=== PATIENT | female | born 1960 | race Caucasian/White ===

== ENCOUNTER 2025-02-06 09:34 | Day surgery (SDC) | payer MEDICARE, BC ==
[~2025-02-06] VITALS: Ht 162.6 cm; Wt 77.4 kg
[2025-02-06] VITALS (12 sets, daily range): BP systolic 133–205; BP diastolic 84–121; PULSE 76–99; RESP 12–16; TEMP 98.2; O2SAT 95–100
[2025-02-06] MEDS ORDERED: ESTROGEN COMPOUND (10:08)
[2025-02-06] MEDS ORDERED: KEN0.1O TOP (10:08)
[2025-02-06] MEDS ORDERED: AMLO5TAB16 PO (10:08)
[2025-02-06] MEDS ORDERED: LOSA25TA41 PO (10:08)
[2025-02-06] MEDS: fentaNYL/PF 50MCG/1 ML 2ML syringe IV ONE (13:00)
[2025-02-06] MEDS: normal saline 1000ml 1,000 ML IV SCH (13:00)
[2025-02-06] MEDS: MIDAZolam 1mg/ml 10ml vial IV ONE (13:00)
--- NOTE | 2025-02-17 20:24 | CARDIOLOGY REPORT ---
DATE OF SERVICE: 02/06/2025 DICTATING PHYSICIAN: Kiki Caceres MD TRANSESOPHAGEAL ECHOCARDIOGRAM DATE OF STUDY: 02/06/2025 DESCRIPTION OF PROCEDURE: After informed consent was obtained, the patient was brought to Cardiac Short Stay, where she was prepped in the usual manner. The transesophageal echocardiographic probe was passed into the esophagus without difficulty. Required images were obtained. The patient remained clinically and hemodynamically stable throughout the procedure. CONCLUSION: Successful transesophageal echocardiogram. Interpretation will be dictated separately. Kiki Caceres MD TID: [id number] RECEIPT: [id number] VIVIAN/BETHANIE
[2025-03-15] MEDS ORDERED: estrogen (14:31)
== END 2025-02-06 13:30 | disposition home or self-care (01) ==
LOC: SSTAY O 09:34
PROVIDERS: ATTEND Student in an Organized Health Care Education/Training Program
DX: D15.1 Benign neoplasm of heart (principal); I10 Essential (primary) hypertension
CPT/HCPCS: 93312; 93325; 94760; J2250; J3010; J7030

== ENCOUNTER 2025-03-16 09:01 | Day surgery (SDC) | payer MEDICARE, BC ==
[2025-03-16] VITALS (9 sets, daily range): BP systolic 127–160; BP diastolic 75–107; PULSE 64–87; RESP 14–21; TEMP 97.8; O2SAT 94–99
[~2025-03-16] VITALS: Ht 162.6 cm; Wt 77.2 kg
[~2025-03-16 09:01] MED LIST: AMLO5TAB16 PO; KEN0.1O TOP; LOSA25TA41 PO; estrogen
--- NOTE | 2025-03-16 09:38 | ELECTROCARDIOGRAPH REPORT ---
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 TYRESE Gonzalez Measurements Intervals [place] Rate: 78 P: 61 PA: 156 QRS: 70 QRSD: 102 T: -20 QT: 440 QTc: 502 Interpretive Statements Sinus rhythm Inferior infarct, age indeterminate Prolonged QT interval Electronically Signed On 03-17-2025 12:35:[address] TYRESE Gonzalez Please click the below link to view image of tracing.
[2025-03-16 10:40] LABS: MEAN PLATELET VOLUME 7.8 FL (7.4-10.4); RED CELL DISTRIBUTION WIDTH 13.2 % (11.5-14.5)
[2025-03-16 10:51] LABS: APTT 26 SECONDS (22-32); INR 1.0 INR
[2025-03-16 10:53] LABS: CREATININE 0.65 MG/DL (0.40-0.90); TOTAL CARBON DIOXIDE 25.4 MMOL/L (24-32); eCRCL 74 ML/MIN; eGFR > 90 ML/MIN
[2025-03-16] MEDS ORDERED: verapamil 2.5 mg/ml inj IV ONE (12:41)
[2025-03-16] MEDS ORDERED: LIDOcaine 1% (10mg/ml) 2ml vial ONE (12:41)
[2025-03-16] MEDS ORDERED: nitroGLYCERIN 500mcg/5mL D5W 5 ML IV ONE (12:42)
[2025-03-16] MEDS ORDERED: heparin 1,000unit/ml 10ml vial 10 ML ONE (12:42)
[2025-03-16] MEDS ORDERED: midazolam 1 mg/ML 2ml injection ONE (12:57)
[2025-03-16] MEDS ORDERED: fentaNYL/PF 50MCG/1 ML 2ML syringe ONE (12:57)
--- NOTE | 2025-03-16 13:25 | CARDIAC CATH REPORT ---
Cardiac Cath Report Providers to CC CC: KAI MEDLEY MD Procedure Comments: 1. Left Heart Catheterization 2. Selective Coronary Angiography 3. Right Radial Artery Access Brief History/Indications: 64yo woman with HTN, Atrial Myxoma referred for evaluation prior to LA myxoma resection. Techniques: After informed consent was obtained, the patient was brought to the cardiac catheterization laboratory and prepped and draped in usual sterile fashion for left heart catheterization and other procedures mentioned above. The right wrist was anesthetized with 1% Lidocaine and the right radial artery accessed via the Seldinger technique after which a 6Fr sheath was placed. Through this a TIG was used to engage the left ventricle, the left coronary artery, and the right coronary artery. At the conclusion of the case the sheath was removed and hemostasis obtained with a VascBand. Findings Findings: HEMODYNAMICS: LV: 119/5 mmHg LVEDP: 7 mmHg Ao: 118/76, MAP 94 mmHg CORONARY ARTERIES: Rt Dominant LMCA: Luminal Irregularities LAD: Prox 30% stenosis D1: Luminal Irregularities D2: Luminal Irregularities LCx: Luminal Irregularities OM1: Luminal Irregularities OM2: Luminal Irregularities RCA: Luminal Irregularities PDA: Luminal Irregularities PL: Luminal Irregularities Results Results: 1. No significant obstructive CAD 2. RRA Access, closed with VascBand RECOMMENDATIONS: 1. Recommend CT surgery evaluation for left atrial Myxoma ERIN MEDLEY MD Mar 16, 2025 13:25
[2025-03-16] MEDS ORDERED: HYDROcodone/acetaminophen 10/325mg tab PO PRN (13:55)
[2025-03-16] MEDS ORDERED: HYDROcodone/acetaminophen 5mg/325mg tablet PO PRN (13:55)
== END 2025-03-16 16:10 | disposition home or self-care (01) ==
LOC: SSTAY O 09:01
PROVIDERS: ATTEND Student in an Organized Health Care Education/Training Program
DX: D15.1 Benign neoplasm of heart (principal); I25.10 Atherosclerotic heart disease of native coronary artery without angina pectoris; I10 Essential (primary) hypertension; Z79.01 Long term (current) use of anticoagulants; Z82.49 Family history of ischemic heart disease and other diseases of the circulatory system; Z79.899 Other long term (current) drug therapy
CPT/HCPCS: 36415; 80048; 85025; 85610; 85730; 93005; 93458; 99152; A6258; A6402; C1894; J1644; J2003; J2250; J3010; J3490; J7030; Q9967; Z7610; 99153